=== PATIENT | male | born 1955 | race Asian ===

== ENCOUNTER 2019-07-05 23:15 | Emergency (ER) | payer OTHER ==
[2019-07-05] MEDS ORDERED: Bacitracin 1 PK ONE (23:40)
--- NOTE | 2019-07-05 23:49 | CT ---
Head CT without contrast 07/05/2019: Comparison: None HISTORY: Injury, trauma TECHNIQUE: Axial CT imaging at 5 mm intervals from vertex through skull base without contrast. Olivier l and sagittal reformatted imaging obtained FINDINGS: There is extensive encephalomalacia within the right and left cerebellar hemisphere with as sociated volume loss suggesting a focal prior insult/infarction. There is also extensive periventricular, deep, and subcortical white matter hypodensity consistent with prominent small vesse l disease. Areas of prior lacunar infarction are noted within the basal ganglia and thalamus bilaterally. The visualized paranasal sinuses and mastoid air cells are well-aerated. There is no displaced calvar ial fracture. There is soft tissue swelling involving the scalp in the left supraorbital region. No intracranial hemorrhage, midline shift, or mass effect. IMPRESSION: Chronic findings as described above. No displaced calvarial fracture or intracranial hemo rrhage.
== END 2019-07-06 | disposition home or self-care (01) ==
LOC: MADERS 23:15
DX: S00.83XA Contusion of other part of head, initial encounter (principal); S00.212A Abrasion of left eyelid and periocular area, initial encounter; E78.5 Hyperlipidemia, unspecified; E78.00 Pure hypercholesterolemia, unspecified; I10 Essential (primary) hypertension; Z86.73 Personal history of transient ischemic attack (TIA), and cerebral infarction without residual deficits; Z79.82 Long term (current) use of aspirin; W17.89XA Other fall from one level to another, initial encounter; Y92.524 Gas station as the place of occurrence of the external cause
CPT/HCPCS: 70450